=== PATIENT | female | born 1975 | race Hispanic/Latino ===

== ENCOUNTER 2016-12-27 12:18 | Inpatient (IN) | payer MEDICAID ==
[2016-12-27 15:07] LABS: Basophils % (Auto) 0.5 % (0.0-1.8); Hemoglobin 14.9 gm/dl (10.1-14.3); Mean Corpuscular HGB Conc 32 % (30-34); Mean Corpuscular Hemoglobin 28 pg (28-32); Mean Corpuscular Volume 85 fl (79-97); Platelet Count 256 K/mm3 (140-440); Red Blood Count 5.41 M/mm3 (3.65-5.03); Red Cell Distribution Width 17.4 % (13.2-15.2); White Blood Count 10.5 K/mm3 (4.5-11.0)
[2016-12-27 15:18] LABS: INR 1.08 (0.87-1.13)
[2016-12-27 15:19] LABS: Partial Thromboplastin Time 28.5 Sec. (24.2-36.6)
[2016-12-27 15:24] LABS: Anion Gap 19 mmol/L; Blood Urea Nitrogen 14 mg/dL (7-17); Calcium 9.2 mg/dL (8.4-10.2); Carbon Dioxide 26 mmol/L (22-30); Chloride 100.3 mmol/L (98-107); Glucose 145 mg/dL (65-100); Potassium 3.9 mmol/L (3.6-5.0); Sodium 141 mmol/L (137-145)
[2016-12-27] MEDS ORDERED: DUONEB 0.5 MG-3 MG/3 ML SOLN IH ONE (20:19)
[2016-12-27] MEDS ORDERED: ASPIRIN PO ONE (20:19)
[2016-12-27] MEDS ORDERED: MORPHINE IM ONE (20:19)
--- NOTE | 2016-12-27 20:25 | Emergency Department Report ---
HPI - General Chief Complaint: Chest Pain Time Seen by Provider: 12/27/16 20:01 - HPI HPI: This is a 41-year-old female who presents to the emergency department by EMS from home with complaint of midsternal chest pain since yesterday. It is a constant stabbing pain it is associated with some shortness of breath, dry cough. Patient says she had 2 episodes of vomiting yesterday but that has since resolved. She denies any fever, back pain, diaphoresis. She has not taken anything for symptoms prior to presentation. She has a history of hypertension, pad-[id number] diabetes, CVA. Patient admits to noncompliance with some of her medications over the past few weeks. No recent travel or sick contacts at home. Her primary care doctor is a Dr. Dia. 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 ED Past Medical Hx - Past Medical History Hx Hypertension: Yes Hx CVA: Yes Hx Heart Attack/AMI: Yes Hx Congestive Heart Failure: Yes Hx Diabetes: Yes Hx Arthritis: Yes Hx Asthma: No Hx COPD: Yes Hx HIV: No Additional medical history: "Enlarged heart", palpitations, sleep apnea, A. fib - Surgical History Additional Surgical History: cyst from buttock. - Social History Smoking Status: Never Smoker - Medications Home Medications: Home Medications Medication Instructions Recorded Confirmed Last Taken Type Aspirin EC [Aspirin Enteric Coated 81 mg PO QDAY #30 tablet. 08/24/16 Unknown Rx TAB] AtorvaSTATin [Lipitor] 40 mg PO QHS #30 tablet 11/06/16 Unknown Rx Digoxin [Lanoxin] 0.25 mg PO DAILY@1700 #30 tablet 11/06/16 Unknown Rx Furosemide [Lasix TAB] 40 mg PO 0600,1800 #60 tablet 11/06/16 Unknown Rx HYDROcodone/APAP 5-325 [[place] 1 each PO Q4HR PRN #12 tablet 11/06/16 Unknown Rx 5/325] Levofloxacin [Levaquin] 750 mg PO QDAY #5 tablet 11/06/16 Unknown Rx Metoprolol [Lopressor TAB] 100 mg PO Q8H #90 tablet 11/06/16 Unknown Rx Potassium Chloride [K-Dur] 10 meq PO Q24HR #60 tablet 11/06/16 Unknown Rx Rivaroxaban [Xarelto] 20 mg PO QDDIAB #30 tablet 11/06/16 Unknown Rx glipiZIDE [Glucotrol] 5 mg PO QDAY #30 tablet 11/06/16 Unknown Rx metFORMIN [Glucophage] 1,000 mg PO BID #60 tablet 11/06/16 Unknown Rx ED Review of Systems ROS: Stated complaint: CHEST TIGHT Other details as noted in HPI Comment: All other systems reviewed and negative Constitutional: denies: chills, fever Eyes: denies: eye pain, eye discharge, vision change ENT: denies: ear pain, throat pain Respiratory: cough, shortness of breath Cardiovascular: chest pain. denies: edema Gastrointestinal: denies: abdominal pain, diarrhea Genitourinary: denies: urgency, dysuria, discharge Musculoskeletal: denies: back pain, joint swelling, arthralgia Skin: denies: rash, lesions Neurological: denies: headache, weakness, paresthesias Physical Exam - Physical Exam Vital Signs: Vital Signs 12/27/16 12/27/16 12/27/16 14:00 19:53 20:05 Temperature 97.5 F L 98 F Pulse Rate 82 104 H 102 H Respiratory 22 26 H 22 Rate Blood Pressure 172/126 Blood Pressure 160/115 [Left] O2 Sat by Pulse 95 95 95 Oximetry 12/27/16 20:07 Temperature Pulse Rate Respiratory 22 Rate Blood Pressure Blood Pressure [Left] O2 Sat by Pulse 95 Oximetry Physical Exam: GENERAL: The patient is well-developed well-nourished. HEENT: Normocephalic. Atraumatic. Extraocular motions are intact. Patient has moist mucous membranes. Pupils equal reactive to light bilateral. NECK: Supple. Trachea is midline. CHEST/LUNGS: Mild to moderate wheezing throughout the chest. There is a dry cough heard during examination. No tachypnea or accessory muscle use. There is no respiratory distress noted. HEART/CARDIOVASCULAR: Irregularly irregular with controlled rate. ABDOMEN: Abdomen is soft, nontender. Patient has normal bowel sounds. There is no abdominal distention. Obese habitus. SKIN: There is no rash. There is no edema. There is no diaphoresis. NEURO: The patient is awake, alert, and oriented. The patient is cooperative. The patient has no focal neurologic deficits. The patient has normal speech. MUSCULOSKELETAL: There is no tenderness or deformity. There is no limitation range of motion. There is no evidence of acute injury. ED Course Vital Signs 12/27/16 12/27/16 12/27/16 14:00 19:53 20:05 Temperature 97.5 F L 98 F Pulse Rate 82 104 H 102 H Respiratory 22 26 H 22 Rate Blood Pressure 172/126 Blood Pressure 160/115 [Left] O2 Sat by Pulse 95 95 95 Oximetry 12/27/16 20:07 Temperature Pulse Rate Respiratory 22 Rate Blood Pressure Blood Pressure [Left] O2 Sat by Pulse 95 Oximetry ED Medical Decision Making - Lab Data Result diagrams: 12/27/16 14:51 12/27/16 14:51 - EKG Data -: EKG Interpreted by Me - EKG Data When compared to previous EKG there are: no significant change Interpretation: unchanged when compared t (11/05/16), other (atrial fibrillation , Q waves in anterior leads, no ST elevation VA) - Radiology Data Radiology results: image reviewed interpreted by me: Chest x-ray shows cardiomegaly and pulmonary vascular congestion with mild basilar pleural effusions consistent with some mild CHF. - Medical Decision Making 41-year-old female presents to the emergency department with a few days of chest pain and shortness of breath. Looking back at patient's consult and records, she has a history of occasional noncompliance and once again has been non-compliant with her medications including blood pressure, blood thinners and diaphoretic. Patient's chest x-ray shows mild CHF. She had a negative d-dimer , despite her lack of Xarelto, and therefore is low suspicion for a pulmonary embolism. First to troponins have been negative. BNP level is greater than 4000 however. And with the x-ray findings, she appears to be an a exacerbation of her CHF. She will be given Lasix and will be admitted to hospital for further evaluation and has been accepted admission by the hospitalist, Dr. Messina. - Differential Diagnosis VA, PE, CHF, pneumonia Critical Care Time: No Critical care attestation.: If time is entered above; I have spent that time in minutes in the direct care of this critically ill patient, excluding procedure time. ED Disposition Clinical Impression: Acute on chronic systolic (congestive) heart failure, Noncompliance with medication regimen, Shortness of breath, Acute chest pain Hypertension Qualifiers: Hypertension type: essential hypertension Qualified Code(s): I10 - Essential ( primary) hypertension Disposition: OP ADMITTED IP TO THIS HOSP Is pt being admited?: Yes Condition: Stable Instructions: Chest Pain (ED), Hypertension (ED) Referrals: DR YOLANDE [Other] - 3-5 Days Time of Disposition: 21:29
[2016-12-27] MEDS ORDERED: LASIX IV ONE (21:17)
--- NOTE | 2016-12-27 22:26 | XRay Report ---
FINAL REPORT EXAM: XR CHEST 1V AP HISTORY: CP TECHNIQUE: Single, portable chest x-ray. PRIORS: 14 May 2016. FINDINGS: Moderate cardiomegaly stable. Lungs are normally expanded, with some interstitial prominence centrally, but no significant vascular congestion. No focal consolidation or apparent pneumothorax. IMPRESSION: 1. Cardiomegaly. 2. No acute consolidation.
[2016-12-27] MEDS ORDERED: DULCOLAX PR PRN (22:30)
[2016-12-27] MEDS ORDERED: TYLENOL PO PRN (22:30)
[2016-12-27] MEDS ORDERED: PROVENTIL IH PRN (22:30)
[2016-12-27] MEDS ORDERED: D50W (25GM) IV PRN (22:30)
[2016-12-27] MEDS ORDERED: MILK OF MAGNESIA PO PRN (22:30)
[2016-12-27] MEDS ORDERED: ZOFRAN IV PRN (22:30)
--- NOTE | 2016-12-27 22:39 | History and Physical Report ---
History of Present Illness Date of examination: 12/27/16 History of present illness: 41-year-old woman with a history of hypertension, diabetes, CHF, A. fib, COPD, sleep apnea, coronary artery disease and history of CVA comes emergency room with complaints of chest pain. Pain is in the epigastric area which started yesterday, described as a stabbing pain, constant, intensity 6/10, no radiation , she cannot identify exacerbating or relieving factors. She admits to shortness breath, no nausea vomiting, diaphoresis palpitation, lower extremity edema or orthopnea. States she had a stress test 5 months ago Patient denies cough, abdominal pain, hematochezia, dysuria, frequency, focal weakness, dysarthria, fever chills, polydipsia polyuria, hot or cold intolerance , easy bruisability, or rash or bleeding from mucosal membrane, rhinorrhea, epistaxis, earache, tinnitus, blurry vision, eye discharge, anxiety, depression. Other review of systems negative PAST SURGICAL HISTORY: None SOCIAL HISTORY: As alcohol, tobacco, drugs FAMILY HISTORY: Diabetes, coronary artery disease Medications and Allergies Allergies Allergy/AdvReac Type Severity Reaction Status Date / Time No Known Allergies Allergy Verified 12/27/16 14:12 Home Medications Medication Instructions Recorded Confirmed Last Taken Type Aspirin EC [Aspirin Enteric Coated 81 mg PO QDAY #30 tablet. 08/24/1612/27/16 Rx TAB] AtorvaSTATin [Lipitor] 40 mg PO QHS #30 tablet 11/06/16 12/27/16 12/26/16 Rx Digoxin [Lanoxin] 0.25 mg PO DAILY@1700 #30 tablet 11/06/16 12/27/16 12/27/16 Rx Furosemide [Lasix TAB] 40 mg PO 0600,1800 #60 tablet 11/06/16 12/27/16 12/27/16 Rx Metoprolol [Lopressor TAB] 100 mg PO Q8H #90 tablet 11/06/16 12/27/16 12/27/16 Rx Rivaroxaban [Xarelto] 20 mg PO QDDIAB #30 tablet 11/06/16 12/27/16 12/27/16 Rx glipiZIDE [Glucotrol] 5 mg PO QDAY #30 tablet 11/06/16 12/27/16 12/27/16 Rx metFORMIN [Glucophage] 1,000 mg PO BID #60 tablet 11/06/16 12/27/16 12/27/16 Rx Potassium Chloride [Klor-Con 10] 10 meq PO DAILY 12/27/16 12/27/16 12/27/16 History Exam - Physical Exam Narrative exam: Gen. appearance: Patient lying in bed, no apparent distress HEENT: Normocephalic, atraumatic, pupils equally round and reactive to light, extraocular movement intact, and no sclericterus,. No JVD or thyromegaly or nodule,neck supple, no carotid bruit ,mucous membranes moist, no exudate or erythema Heart: S1, S2, regular rate and rhythm Lungs: Clear to auscultation bilaterally, breathing comfortable Abdomen: Positive bowel sounds, nontender, nondistended, no organomegaly Extremity: No edema, cyanosis, clubbing Skin: No rash, nodules, warm, dry Neuro: Oriented 3, cranial nerves II-12 intact, speech is fluent, motor and sensory intact - Constitutional Vitals: Temp Pulse Resp BP Pulse Ox 98 F 75 19 160/115 95 12/27/16 20:05 12/27/16 21:11 12/27/16 21:11 12/27/16 20:05 12/27/16 20:07 Results - Labs CBC & Chem 7: 12/27/16 14:51 12/27/16 14:51 Labs: Abnormal lab results 12/27/16 12/27/16 12/27/16 Range/Units 14:51 14:51 20:27 RBC 5.41 H (3.65-5.03) M/mm3 Hgb 14.9 H (10.1-14.3) gm/dl Hct 46.0 H (30.3-42.9) % RDW 17.4 H (13.2-15.2) % [place] % (Auto) 10.6 H (0.0-7.3) % [place] # 1.1 H (0.0-0.8) K/mm3 Seg Neutrophils % 72.1 H (40.0-70.0) % Glucose 145 H (65-100) mg/dL NT-Pro-B Natriuret Pep 4250 H (0-450) pg/mL - Imaging and Cardiology EKG: image reviewed Chest x-ray: image reviewed Assessment and Plan Unstable angina Coronary artery disease A. fib Hypertension Diabetes of 2 COPD Sleep apnea Admit to medicine Check cardiac enzymes, consult cardiology Check fingersticks initiate insulin sliding scale, continue appropriate outpatient medications DVT prophylaxis with xarelto
--- NOTE | 2016-12-27 23:10 | Admit Criteria Form ---
Admission Criteria Documentation: HEART FAILURE: COMMON COMPLICATIONS Clinical Indications for Inpatient Care (Place 'X' for any and all applicable criteria): Ongoing inpatient care may be indicated for heart failure with ANY ONE of the following (1)(2)(3)(4)(5): [ ]I. Ongoing need for care for primary condition requiring frequent therapy adjustments because of changes in cardiac function (eg, drug dosage changes for drugs that are renally metabolized) [ ]II. New-onset heart failure [ ]III. Heart failure with decreased urine output not responsive to attempts to optimize volume status [ ]IV. Acute cardiac ischemia causing or associated with failure [ X]V. Complications of heart failure, including ANY ONE of the following: [ ]a) Pericardial effusion [ ]b) Symptomatic pleural effusion [ ]c) O2 saturation <90% or PO2 < 60 mm Hg (8.0 kPa) on room air or require baseline supplemental O2 [ ]d) Tachypnea [ X]e) Dyspnea [ ]f) Syncope [ ]g) Change in mental status [ ]h) Acute renal insufficiency that is severe (reduction of more than 50% in estimated glomerular filtration rate from baseline) or progressive reduction of more than 25% in estimated glomerular filtration rate from baseline, with creatinine continuing to rise) [ ]i) Hemodynamic instability [ ]j) Anasarca [ ]k) Clinically significant metabolic abnormalities due to heart failure (eg, new-onset metabolic acidosis) Extended stay beyond goal length of stay for primary condition may be needed until ALL of the following are present(1)(3): [ ]a) Stable and effective diuretic regimen established (or patient on stable dialysis regimen if in chronic renal failure) [ ]b) Breathing comfortably at rest [ ]c) Saturation of arterial oxygen greater than 90% or at acceptable baseline [ ]d) Pulmonary edema absent or improved [ ]e) Hemodynamic stability [ ]f) Volume status acceptable on oral medication [ ]g) Peripheral or sacral edema absent or improved [ ]h) Renal function stable and manageable at a lower level of care [ ]i) Complications (eg, pleural effusion) resolved or manageable at a lower level of care [ ]j) Patient or caregiver has received written discharge instructions or educational material addressing activity level, diet, discharge medications, follow-up appointment, weight monitoring, and what to do if symptoms worsen The original [employer], [facility] content created by [employer] has been revised. The portions of the content which have been revised are identified through the use of italic text or in bold, and [facility] has neither reviewed nor approved the modified material.All other unmodified content is copyright [facility]. Please see references footnoted in the original [facility] edition 2016 Admission Criteria Met: Yes
[2016-12-28] MEDS: MORPHINE IV PRN ×4 (02:05→21:58)
[2016-12-28 04:45] LABS: Basophils % (Auto) 0.6 % (0.0-1.8); Eosinophils % (Auto) 2.4 % (0.0-4.3); Hematocrit 42.6 % (30.3-42.9); Hemoglobin 13.7 gm/dl (10.1-14.3); Mean Corpuscular HGB Conc 32 % (30-34); Mean Corpuscular Hemoglobin 27 pg (28-32); Mean Corpuscular Volume 85 fl (79-97); Platelet Count 235 K/mm3 (140-440); Red Blood Count 5.01 M/mm3 (3.65-5.03); Red Cell Distribution Width 16.9 % (13.2-15.2); White Blood Count 7.8 K/mm3 (4.5-11.0)
[2016-12-28 04:52] LABS: Anion Gap 18 mmol/L; BUN/Creatinine Ratio 21.42; Blood Urea Nitrogen 15 mg/dL (7-17); Calcium 8.2 mg/dL (8.4-10.2); Carbon Dioxide 26 mmol/L (22-30); Chloride 97.8 mmol/L (98-107); Glucose 158 mg/dL (65-100); Potassium 3.4 mmol/L (3.6-5.0); Sodium 138 mmol/L (137-145)
[2016-12-28 04:54] LABS: Creatine Kinase MB 1.5 ng/mL (0.0-4.0)
[2016-12-28 04:55] LABS: Creatine Kinase 36 units/L (30-135)
[2016-12-28 08:18] LABS: Creatine Kinase MB 1.7 ng/mL (0.0-4.0)
[2016-12-28 08:21] LABS: Creatine Kinase 35 units/L (30-135)
[2016-12-28] MEDS: NOVOLOG SUB-Q SCH ×4 (09:07→22:12)
[2016-12-28] MEDS: ASPIRIN PO SCH (09:07)
--- NOTE | 2016-12-28 09:35 | Consultation ---
History of Present Illness Consult date: 12/28/16 Consult reason: chest pain History of present illness: Patient is presenting with severe stabbing chest pain. She is profoundly non- compliant with meds and outpatient follow-up. ECG is showing subtle St_T wave changes in the lateral leads. Troponin are negative. Past History Past Medical History: atrial fib, COPD, diabetes, heart failure, hypertension, hyperlipidemia Medications and Allergies Allergies Allergy/AdvReac Type Severity Reaction Status Date / Time No Known Allergies Allergy Verified 12/27/16 14:12 Home Medications Medication Instructions Recorded Confirmed Last Taken Type Aspirin EC [Aspirin Enteric Coated 81 mg PO QDAY #30 tablet. 08/24/1612/27/16 Rx TAB] AtorvaSTATin [Lipitor] 40 mg PO QHS #30 tablet 11/06/16 12/27/16 12/26/16 Rx Digoxin [Lanoxin] 0.25 mg PO DAILY@1700 #30 tablet 11/06/16 12/27/16 12/27/16 Rx Furosemide [Lasix TAB] 40 mg PO 0600,1800 #60 tablet 11/06/16 12/27/16 12/27/16 Rx Metoprolol [Lopressor TAB] 100 mg PO Q8H #90 tablet 11/06/16 12/27/16 12/27/16 Rx Rivaroxaban [Xarelto] 20 mg PO QDDIAB #30 tablet 11/06/16 12/27/16 12/27/16 Rx glipiZIDE [Glucotrol] 5 mg PO QDAY #30 tablet 11/06/16 12/27/16 12/27/16 Rx metFORMIN [Glucophage] 1,000 mg PO BID #60 tablet 11/06/16 12/27/16 12/27/16 Rx Potassium Chloride [Klor-Con 10] 10 meq PO DAILY 12/27/16 12/27/16 12/27/16 History Active Meds: Active Medications Acetaminophen (Tylenol) 650 mg PO Q4H PRN PRN Reason: Pain MILD(1-3)/Fever >100.5/AGRAWAL Albuterol (Proventil) 2.5 mg IH Q3HRT PRN PRN Reason: Shortness Of Breath Aspirin (Aspirin) 325 mg PO QDAY NATHALIE Last Admin: 12/28/16 09:07 Dose: 325 mg Bisacodyl (Dulcolax) 10 mg AL QDAY PRN PRN Reason: Constipation unrelieved by MOM Dextrose (D50w (25gm)) 50 ml IV PRN PRN PRN Reason: Hypoglycemia Enoxaparin Sodium (Lovenox) 40 mg SUB-Q QDAY [facility] Last Admin: 12/28/16 09:05 Dose: 40 mg Insulin Aspart (Novolog) 0 units SUB-Q ACHS NATHALIE PRN Reason: Protocol Last Admin: 12/28/16 09:07 Dose: 3 units Magnesium Hydroxide (Milk Of Magnesia) 30 ml PO Q4H PRN PRN Reason: Constipation Morphine Sulfate (Morphine) 2 mg IV Q4H PRN PRN Reason: Pain, Moderate (4-6) Last Admin: 12/28/16 09:06 Dose: 2 mg Ondansetron HCl (Zofran) 4 mg IV Q8H PRN PRN Reason: N/V unrelieved by Reglan Last Admin: 12/28/16 09:06 Dose: 4 mg Review of Systems All systems: negative Physical Examination Vital Signs Temp Pulse Resp BP Pulse Ox 97.5 F L 82 22 172/126 95 12/27/16 14:00 12/27/16 14:00 12/27/16 14:00 12/27/16 14:00 12/27/16 14:00 General appearance: no acute distress HEENT: Positive: PERRL Neck: Positive: neck supple Cardiac: Positive: Reg Rate and Rhythm Lungs: Positive: Decreased Breath Sounds Neuro: Positive: Grossly Intact Abdomen: Positive: Soft Extremities: Absent: edema Results 12/28/16 03:53 12/28/16 03:53 Cardiac Enzymes 12/28/16 12/28/16 Range/Units 03:53 07:28 CK-MB (CK-2) 1.5 1.7 (0.0-4.0) ng/mL CBC 12/28/16 Range/Units 03:53 WBC 7.8 (4.5-11.0) K/mm3 RBC 5.01 (3.65-5.03) M/mm3 Hgb 13.7 (10.1-14.3) gm/dl Hct 42.6 (30.3-42.9) % Plt Count 235 (140-440) K/mm3 Lymph # 1.5 (1.2-5.4) K/mm3 [place] # 0.9 H (0.0-0.8) K/mm3 Eos # 0.2 (0.0-0.4) K/mm3 Baso # 0.0 (0.0-0.1) K/mm3 Comprehensive Metabolic Panel 12/28/16 Range/Units 03:53 Sodium 138 (137-145) mmol/L Potassium 3.4 L (3.6-5.0) mmol/L Chloride 97.8 L (98-107) mmol/L Carbon Dioxide 26 (22-30) mmol/L BUN 15 (7-17) mg/dL Creatinine 0.7 (0.7-1.2) mg/dL Glucose 158 H (65-100) mg/dL Calcium 8.2 L (8.4-10.2) mg/dL EKG interpretations - Telemetry EKG Rhythm: Atrial Fibrillation Assessment and Plan Chest Pain Subtle ST-T changes in the lateral leads - cannot exclude ischemia Troponin negative x 4 Chronic Atrial fibrillation non-compliant with anticoagulation COPD ANTONETTE Obese Cardiomyopathy, non-ischemic TDS, EF severely reduced on echo 04/2016 No ischemia on stress thallium 07/2016 Diabetes Hypertension Anxiety Non compliance Recommendations: asa, lovenox bid, metoprolol, lipitor C on friday
[2016-12-28] MEDS ORDERED: LOVENOX SUB-Q SCH (10:00)
[2016-12-28] MEDS: LOVENOX SUB-Q SCH ×2 (15:25→21:58)
[2016-12-28] MEDS: TOPROL XL PO SCH (15:26)
--- NOTE | 2016-12-29 07:50 | Progress Note ---
Assessment and Plan - Patient Problems (1) Acute chest pain Current Visit: Yes Status: Acute (2) Acute on chronic systolic (congestive) heart failure Current Visit: Yes Status: Acute Plan to address problem: Cardiology consulted: CHF protocol, telemetry, supportive care, fluid restriction, low sodium diet, (3) Noncompliance with medication regimen Current Visit: Yes Status: Acute Plan to address problem: Pt counseled (4) Hypertension Current Visit: Yes Status: Chronic Qualifiers: Hypertension type: essential hypertension Qualified Code(s): I10 - Essential (primary) hypertension Plan to address problem: Monitor bp q shift, (5) Sleep apnea Current Visit: No Status: Acute Qualifiers: Sleep apnea type: S Plan to address problem: NIPPV, supplemental oxygen, incentive spirometry, ambulation prn (6) Morbid obesity due to excess calories Current Visit: No Status: Chronic Plan to address problem: Pt counseled (7) Type 2 diabetes mellitus Current Visit: No Status: Chronic Qualifiers: Diabetes mellitus complication status: without complication Diabetes mellitus complication detail: D Diabetic retinopathy severity: D Proliferative retinopathy type: P Diabetes mellitus macular edema: D 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 Pt denies pain, palpitations, NVD, No reported nursing events. Pt informed of cardiac testing on friday. Hospitalist Physical - Constitutional Vitals: Temp Pulse Resp BP Pulse Ox 98.6 F 68 22 122/90 100 12/29/16 05:31 12/29/16 05:55 12/29/16 05:31 12/29/16 05:31 12/29/16 05:31 General appearance: Present: no acute distress, obese - EENT Eyes: Present: PERRL ENT: hearing intact - Neck Neck: Present: supple - Respiratory Respiratory: bilateral: diminished - Cardiovascular Rhythm: regular Heart Sounds: Present: S1 & S2 - Extremities Extremities: no ischemia Peripheral Pulses: within normal limits - Abdominal General gastrointestinal: soft, non-tender, non-distended - Integumentary Integumentary: Present: clear, dry - Psychiatric Psychiatric: appropriate mood/affect, cooperative - Neurologic Neurologic: CNII-XII intact Results - Labs CBC & Chem 7: 12/28/16 03:53 12/28/16 03:53 Labs: Laboratory Last Values WBC 7.8 K/mm3 (4.5-11.0) 12/28/16 03:53 RBC 5.01 M/mm3 (3.65-5.03) 12/28/16 03:53 Hgb 13.7 gm/dl (10.1-14.3) 12/28/16 03:53 Hct 42.6 % (30.3-42.9) 12/28/16 03:53 MCV 85 fl (79-97) 12/28/16 03:53 MCH 27 pg (28-32) L 12/28/16 03:53 MCHC 32 % (30-34) 12/28/16 03:53 RDW 16.9 % (13.2-15.2) H 12/28/16 03:53 Plt Count 235 K/mm3 (140-440) 12/28/16 03:53 Lymph % (Auto) 19.7 % (13.4-35.0) 12/28/16 03:53 [place] % (Auto) 11.5 % (0.0-7.3) H 12/28/16 03:53 Eos % (Auto) 2.4 % (0.0-4.3) 12/28/16 03:53 Baso % (Auto) 0.6 % (0.0-1.8) 12/28/16 03:53 Lymph # 1.5 K/mm3 (1.2-5.4) 12/28/16 03:53 [place] # 0.9 K/mm3 (0.0-0.8) H 12/28/16 03:53 Eos # 0.2 K/mm3 (0.0-0.4) 12/28/16 03:53 Baso # 0.0 K/mm3 (0.0-0.1) 12/28/16 03:53 Seg Neutrophils % 65.8 % (40.0-70.0) 12/28/16 03:53 Seg Neutrophils # 5.2 K/mm3 (1.8-7.7) 12/28/16 03:53 PT 13.9 Sec. (12.2-14.9) 12/27/16 14:51 INR 1.08 (0.87-1.13) 12/27/16 14:51 APTT 28.5 Sec. (24.2-36.6) 12/27/16 14:51 D-Dimer < 135.00 ng/mlDDU (0-234) 12/27/16 20:27 Sodium 138 mmol/L (137-145) 12/28/16 03:53 Potassium 3.4 mmol/L (3.6-5.0) L 12/28/16 03:53 Chloride 97.8 mmol/L (98-107) L 12/28/16 03:53 Carbon Dioxide 26 mmol/L (22-30) 12/28/16 03:53 Anion Gap 18 mmol/L 12/28/16 03:53 BUN 15 mg/dL (7-17) 12/28/16 03:53 Creatinine 0.7 mg/dL (0.7-1.2) 12/28/16 03:53 Estimated GFR > 60 ml/min 12/28/16 03:53 BUN/Creatinine Ratio 21.42 % 12/28/16 03:53 Glucose 158 mg/dL (65-100) H 12/28/16 03:53 POC Glucose 191 (70-105) H 12/28/16 21:37 Calcium 8.2 mg/dL (8.4-10.2) L 12/28/16 03:53 Total Creatine Kinase 35 units/L (30-135) 12/28/16 07:28 CK-MB (CK-2) 1.7 ng/mL (0.0-4.0) 12/28/16 07:28 CK-MB (CK-2) Rel Index 4.8 (0-4) H 12/28/16 07:28 Troponin T < 0.010 ng/mL (0.00-0.029) 12/28/16 07:28 NT-Pro-B Natriuret Pep 4250 pg/mL (0-450) H 12/27/16 20:27
--- NOTE | 2016-12-29 08:52 | Progress Note ---
Assessment and Plan Chest Pain Recurrent admissions for chest pain Subtle ST-T changes in the lateral leads - cannot exclude ischemia Troponin negative x 4 Chronic Atrial fibrillation non-compliant with anticoagulation COPD ANTONETTE Obese Cardiomyopathy, non-ischemic TDS, EF severely reduced on echo 04/2016 No ischemia on stress thallium 07/2016 Diabetes Hypertension Anxiety Non compliance Recommendations: asa, lovenox bid, metoprolol, lipitor [facility] on friday Subjective Date of service: 12/29/16 Principal diagnosis: Chest Pain Interval history: No interval changes or cardiac events Objective Vital Signs Temp Pulse Pulse Resp BP BP Pulse Ox 12/29/16 05:55 68 12/29/16 05:31 98.6 F 74 22 122/90 100 12/29/16 00:57 98.5 F 96 H 22 125/82 97 12/29/16 00:27 68 20 96 12/28/16 21:58 20 12/28/16 20:39 98.5 F 92 H 22 135/81 95 12/28/16 20:15 97 12/28/16 17:35 97.9 F 66 20 163/96 98 12/28/16 15:26 104 H 112/77 12/28/16 09:43 95 - Physical Examination HEENT: Positive: PERRL Neck: Positive: neck supple Cardiac: Positive: irregularly irregular Lungs: Positive: Decreased Breath Sounds Neuro: Positive: Grossly Intact Abdomen: Positive: Soft Extremities: Absent: edema - Imaging and Cardiology EKG: image reviewed
[2016-12-29] MEDS ORDERED: NACL 0.9% 500 ML 500 ML IV SCH (09:00)
[2016-12-29] MEDS: NOVOLOG SUB-Q SCH ×2 (10:27→22:52)
[2016-12-29] MEDS: ASPIRIN PO SCH (10:28)
[2016-12-29] MEDS: TOPROL XL PO SCH (10:28)
[2016-12-29] MEDS: LOVENOX SUB-Q SCH ×2 (10:30→22:52)
[2016-12-29] MEDS: MORPHINE IV PRN ×3 (10:31→21:05)
--- NOTE | 2016-12-29 15:33 | Progress Note ---
Assessment and Plan - Patient Problems (1) Acute chest pain Current Visit: Yes Status: Acute Plan to address problem: telemetry, Cardiology consulted, Cardiac cath on Friday (2) Acute on chronic systolic (congestive) heart failure Current Visit: Yes Status: Acute Plan to address problem: Cardiology consulted: CHF protocol, telemetry, supportive care, fluid restriction, low sodium diet, (3) Noncompliance with medication regimen Current Visit: Yes Status: Acute Plan to address problem: Pt counseled (4) Hypertension Current Visit: Yes Status: Chronic Qualifiers: Hypertension type: essential hypertension Qualified Code(s): I10 - Essential (primary) hypertension Plan to address problem: Monitor bp q shift, (5) Sleep apnea Current Visit: No Status: Acute Qualifiers: Sleep apnea type: S Plan to address problem: NIPPV, supplemental oxygen, incentive spirometry, ambulation prn (6) Morbid obesity due to excess calories Current Visit: No Status: Chronic Plan to address problem: Pt counseled (7) Type 2 diabetes mellitus Current Visit: No Status: Chronic Qualifiers: Diabetes mellitus complication status: without complication Diabetes mellitus complication detail: D Diabetic retinopathy severity: D Proliferative retinopathy type: P Diabetes mellitus macular edema: D Diabetes mellitus fdc insulin use: without adjunct faculty for medical terminology use Laterality: L Chronic kidney disease stage: C Qualified Code(s): E11.9 - Type 2 diabetes mellitus without complications Plan to address problem: ADA diet, insulin, Accu check (8) DVT prophylaxis Current Visit: Yes Status: Acute History Interval history: Pt lying in bed, NIPPV in place. Pt denies pain, palpitations, NVD, No reported nursing events. Pending Cardiac Cath on friday. Pt counseled regarding leaving the floor, and taking off her punchboard stuffer. Hospitalist Physical - Constitutional Vitals: Temp Pulse Resp BP Pulse Ox 98.0 F 109 H 20 170/102 94 12/29/16 08:25 12/29/16 10:28 12/29/16 10:31 12/29/16 10:28 12/29/16 10:00 General appearance: Present: no acute distress, obese - EENT Eyes: Present: PERRL, EOM intact ENT: hearing intact - Neck Neck: Present: supple - Respiratory Respiratory: bilateral: diminished - Cardiovascular Rhythm: regular Heart Sounds: Present: S1 & S2 - Extremities Extremities: no ischemia Peripheral Pulses: within normal limits - Abdominal General gastrointestinal: soft, non-tender, non-distended - Integumentary Integumentary: Present: clear, dry - Psychiatric Psychiatric: appropriate mood/affect, cooperative - Neurologic Neurologic: CNII-XII intact Results - Labs CBC & Chem 7: 12/28/16 03:53 12/28/16 03:53 Labs: Laboratory Last Values WBC 7.8 K/mm3 (4.5-11.0) 12/28/16 03:53 RBC 5.01 M/mm3 (3.65-5.03) 12/28/16 03:53 Hgb 13.7 gm/dl (10.1-14.3) 12/28/16 03:53 Hct 42.6 % (30.3-42.9) 12/28/16 03:53 MCV 85 fl (79-97) 12/28/16 03:53 MCH 27 pg (28-32) L 12/28/16 03:53 MCHC 32 % (30-34) 12/28/16 03:53 RDW 16.9 % (13.2-15.2) H 12/28/16 03:53 Plt Count 235 K/mm3 (140-440) 12/28/16 03:53 Lymph % (Auto) 19.7 % (13.4-35.0) 12/28/16 03:53 [place] % (Auto) 11.5 % (0.0-7.3) H 12/28/16 03:53 Eos % (Auto) 2.4 % (0.0-4.3) 12/28/16 03:53 Baso % (Auto) 0.6 % (0.0-1.8) 12/28/16 03:53 Lymph # 1.5 K/mm3 (1.2-5.4) 12/28/16 03:53 [place] # 0.9 K/mm3 (0.0-0.8) H 12/28/16 03:53 Eos # 0.2 K/mm3 (0.0-0.4) 12/28/16 03:53 Baso # 0.0 K/mm3 (0.0-0.1) 12/28/16 03:53 Seg Neutrophils % 65.8 % (40.0-70.0) 12/28/16 03:53 Seg Neutrophils # 5.2 K/mm3 (1.8-7.7) 12/28/16 03:53 PT 13.9 Sec. (12.2-14.9) 12/27/16 14:51 INR 1.08 (0.87-1.13) 12/27/16 14:51 APTT 28.5 Sec. (24.2-36.6) 12/27/16 14:51 D-Dimer < 135.00 ng/mlDDU (0-234) 12/27/16 20:27 Sodium 138 mmol/L (137-145) 12/28/16 03:53 Potassium 3.4 mmol/L (3.6-5.0) L 12/28/16 03:53 Chloride 97.8 mmol/L (98-107) L 12/28/16 03:53 Carbon Dioxide 26 mmol/L (22-30) 12/28/16 03:53 Anion Gap 18 mmol/L 12/28/16 03:53 BUN 15 mg/dL (7-17) 12/28/16 03:53 Creatinine 0.7 mg/dL (0.7-1.2) 12/28/16 03:53 Estimated GFR > 60 ml/min 12/28/16 03:53 BUN/Creatinine Ratio 21.42 % 12/28/16 03:53 Glucose 158 mg/dL (65-100) H 12/28/16 03:53 POC Glucose 183 (70-105) H 12/29/16 12:16 Calcium 8.2 mg/dL (8.4-10.2) L 12/28/16 03:53 Total Creatine Kinase 35 units/L (30-135) 12/28/16 07:28 CK-MB (CK-2) 1.7 ng/mL (0.0-4.0) 12/28/16 07:28 CK-MB (CK-2) Rel Index 4.8 (0-4) H 12/28/16 07:28 Troponin T < 0.010 ng/mL (0.00-0.029) 12/28/16 07:28 NT-Pro-B Natriuret Pep 4250 pg/mL (0-450) H 12/27/16 20:27
[2016-12-30 05:33] LABS: Hemoglobin 13.1 gm/dl (10.1-14.3)
[2016-12-30 05:42] LABS: Basophils % (Auto) 0.4 % (0.0-1.8); Eosinophils % (Auto) 2.8 % (0.0-4.3); Hematocrit 40.5 % (30.3-42.9); INR 1.08 (0.87-1.13); Mean Corpuscular HGB Conc 32 % (30-34); Mean Corpuscular Hemoglobin 28 pg (28-32); Mean Corpuscular Volume 86 fl (79-97); Platelet Count 211 K/mm3 (140-440); Red Blood Count 4.73 M/mm3 (3.65-5.03); Red Cell Distribution Width 16.9 % (13.2-15.2); White Blood Count 7.2 K/mm3 (4.5-11.0)
[2016-12-30 05:54] LABS: Anion Gap 17 mmol/L; Blood Urea Nitrogen 12 mg/dL (7-17); Calcium 8.3 mg/dL (8.4-10.2); Carbon Dioxide 28 mmol/L (22-30); Chloride 98.8 mmol/L (98-107); Glucose 155 mg/dL (65-100); Potassium 3.9 mmol/L (3.6-5.0); Sodium 140 mmol/L (137-145)
[2016-12-30] MEDS ORDERED: NACL 0.9% 500 ML 500 ML IV SCH (06:00)
[2016-12-30] MEDS: NOVOLOG SUB-Q SCH ×4 (08:02→21:47)
[2016-12-30] MEDS ORDERED: NITROGLYCERIN SYRINGE 3 ML ONE (08:32)
[2016-12-30] MEDS ORDERED: HEPARIN/NS 5000 UNIT/500ML(CATH LAB) 1,000 ML IR ONE (08:32)
[2016-12-30] MEDS ORDERED: ASPIRIN ONE (08:50)
[2016-12-30] MEDS: XYLOCAINE 2% INFILTRATI ONE ×2 (09:13→09:30)
[2016-12-30] MEDS: SUBLIMAZE ONE ×2 (09:13→09:25)
[2016-12-30] MEDS: VERSED ONE ×2 (09:13→09:25)
[2016-12-30] MEDS: CALAN ONE ×2 (09:13→09:30)
[2016-12-30] MEDS: HEPARIN 10,000 UNITS/10 ML ONE ×2 (09:14→09:30)
[2016-12-30] MEDS ORDERED: LASIX ONE (09:49)
--- NOTE | 2016-12-30 10:08 | Progress Note ---
Assessment and Plan - Patient Problems (1) Shortness of breath Current Visit: Yes Status: Acute Plan to address problem: Cardiac cath done-R radial approach, no complications. Findings: 1. Non-obstructive disease of the mid LAD and prox RCA. 2. Nonischemic CM, EF 35%. Recommend medical therapy for uncontrolled HTN, CHF and NICM. Subjective Date of service: 12/30/16 Principal diagnosis: Chest Pain Interval history: Cardiac cath done-R radial approach, no complications. Findings: 1. Non-obstructive disease of the mid LAD and prox RCA. 2. Nonischemic CM, EF 35%. Recommend medical therapy for uncontrolled HTN, CHF and NICM. Objective Vital Signs Temp Pulse Pulse Pulse Resp Resp BP 12/30/16 07:23 97.9 F 73 20 12/30/16 05:58 97.6 F 86 20 12/30/16 01:43 89 19 12/30/16 01:00 97.8 F 95 H 19 12/29/16 22:00 95 H 18 18 12/29/16 21:35 18 12/29/16 21:05 18 12/29/16 20:00 97.6 F 66 19 12/29/16 19:19 89 12/29/16 17:15 98.1 F 72 24 12/29/16 10:31 20 12/29/16 10:28 109 H 170/102 BP BP Pulse Ox 12/30/16 07:23 177/106 96 12/30/16 05:58 156/96 99 12/30/16 01:43 98 12/30/16 01:00 159/99 98 12/29/16 22:00 12/29/16 21:35 12/29/16 21:05 12/29/16 20:00 193/122 96 12/29/16 19:19 12/29/16 17:15 201/113 12/29/16 10:31 12/29/16 10:28 - Physical Examination General: No Apparent Distress HEENT: Positive: PERRL Neck: Positive: neck supple Cardiac: Positive: Reg Rate and Rhythm Lungs: Positive: Decreased Breath Sounds Neuro: Positive: Grossly Intact Abdomen: Positive: Soft Skin: Positive: Clear Extremities: Absent: edema - Labs and Meds Coagulation 12/30/16 Range/Units 05:04 PT 13.9 (12.2-14.9) Sec. INR 1.08 (0.87-1.13) CBC 12/30/16 Range/Units 05:04 WBC 7.2 (4.5-11.0) K/mm3 RBC 4.73 (3.65-5.03) M/mm3 Hgb 13.1 (10.1-14.3) gm/dl Hct 40.5 (30.3-42.9) % Plt Count 211 (140-440) K/mm3 Lymph # 2.0 (1.2-5.4) K/mm3 [place] # 0.8 (0.0-0.8) K/mm3 Eos # 0.2 (0.0-0.4) K/mm3 Baso # 0.0 (0.0-0.1) K/mm3 Comprehensive Metabolic Panel 12/30/16 Range/Units 05:04 Sodium 140 (137-145) mmol/L Potassium 3.9 (3.6-5.0) mmol/L Chloride 98.8 (98-107) mmol/L Carbon Dioxide 28 (22-30) mmol/L BUN 12 (7-17) mg/dL Creatinine 0.6 L (0.7-1.2) mg/dL Glucose 155 H (65-100) mg/dL Calcium 8.3 L (8.4-10.2) mg/dL - Imaging and Cardiology EKG: image reviewed
[2016-12-30] MEDS: LOVENOX SUB-Q SCH ×2 (10:10→21:45)
[2016-12-30] MEDS: ASPIRIN PO SCH (10:10)
[2016-12-30] MEDS: TOPROL XL PO SCH (10:38)
--- NOTE | 2016-12-30 10:42 | Cardiac Catherization Report ---
CARDIAC CATHETERIZATION REASON FOR PROCEDURE: Chest pain and cardiomyopathy. DESCRIPTION OF PROCEDURE: The patient was prepped and draped in a sterile fashion after informed consent. The right radial artery was entered using the Seldinger technique followed by placement of a 5-[place] hydrophilic sheath. Routine radial cocktail was administered via the sheath. A #3.5 left Martita catheter was used for left coronary angiography. A #4 right Martita was used for right coronary angiography. The pigtail catheter was used for left ventricular angiography. The catheters were removed, sheath removed, and hemostasis achieved using manual compression. The patient was returned to the postprocedure unit in stable condition. There were no complications. FINDINGS: HEMODYNAMICS: Left ventricle end-diastolic pressure was 35-40, following coronary angiography. Ascending aortic pressure was 194/140. There was no significant pressure gradient on pullback across the aortic valve. CORONARY ANGIOGRAPHY: The left main coronary artery was angiographically normal. There was a 50-60% stenosis of the mid LAD, just after the origin of a medium sized mid diagonal branch. Otherwise, the LAD and diagonal branches were free of significant disease. The circumflex artery and its obtuse marginal branches were free of significant disease. The right coronary artery was dominant and contained a 30-40% stenosis of its proximal segment. The left ventricle is moderately to severely dilated. There is moderately severe left ventricular systolic dysfunction, ejection fraction estimated at 30-35%. CONCLUSION: 1. Mild to moderate, nonobstructive disease of the mid LAD and proximal right coronary artery. 2. Dilated, predominantly nonischemic cardiomyopathy, ejection fraction 30-35%. RECOMMENDATION: 1. Aggressive risk factor modification. 2. Medical therapy for predominantly nonischemic cardiomyopathy. [facility]# [id number] CA/NTS
[2016-12-30] MEDS ORDERED: APRESOLINE IV ONE (12:43)
[2016-12-30] MEDS: MORPHINE IV PRN ×2 (13:07→21:46)
--- NOTE | 2016-12-30 17:24 | Progress Note ---
Assessment and Plan - Patient Problems (1) Acute chest pain Current Visit: Yes Status: Acute Plan to address problem: telemetry, Cardiology consulted, Cardiac cath on Friday (2) Acute on chronic systolic (congestive) heart failure Current Visit: Yes Status: Acute Plan to address problem: Cardiology consulted: CHF protocol, telemetry, supportive care, fluid restriction, low sodium diet, (3) Noncompliance with medication regimen Current Visit: Yes Status: Acute Plan to address problem: Pt counseled (4) Hypertension Current Visit: Yes Status: Chronic Qualifiers: Hypertension type: essential hypertension Qualified Code(s): I10 - Essential (primary) hypertension Plan to address problem: Monitor bp q shift, (5) Sleep apnea Current Visit: No Status: Acute Qualifiers: Sleep apnea type: S Plan to address problem: NIPPV, supplemental oxygen, incentive spirometry, ambulation prn (6) Morbid obesity due to excess calories Current Visit: No Status: Chronic Plan to address problem: Pt counseled (7) Type 2 diabetes mellitus Current Visit: No Status: Chronic Qualifiers: Diabetes mellitus complication status: without complication Diabetes mellitus complication detail: D Diabetic retinopathy severity: D Proliferative retinopathy type: P Diabetes mellitus macular edema: D Diabetes mellitus usp insulin use: without moth exterminator use Laterality: L Chronic kidney disease stage: C Qualified Code(s): E11.9 - Type 2 diabetes mellitus without complications Plan to address problem: ADA diet, insulin, Accu check (8) DVT prophylaxis Current Visit: Yes Status: Acute History Interval history: Pt lying in bed, NIPPV in place. Pt denies pain, palpitations, NVD, No reported nursing events. Hospitalist Physical - Constitutional Vitals: Temp Pulse Resp BP Pulse Ox 98.5 F 94 H 20 208/131 95 12/30/16 15:04 12/30/16 15:04 12/30/16 15:04 12/30/16 15:04 12/30/16 15:04 General appearance: Present: no acute distress, obese - EENT Eyes: Present: PERRL ENT: hearing intact - Neck Neck: Present: supple - Respiratory Respiratory: bilateral: diminished - Cardiovascular Rhythm: regular Heart Sounds: Present: S1 & S2 - Extremities Extremities: no ischemia Peripheral Pulses: within normal limits - Abdominal General gastrointestinal: soft, non-tender, non-distended - Integumentary Integumentary: Present: clear, dry - Psychiatric Psychiatric: appropriate mood/affect, cooperative - Neurologic Neurologic: CNII-XII intact Results - Labs CBC & Chem 7: 12/30/16 05:04 12/30/16 05:04 Labs: Laboratory Last Values WBC 7.2 K/mm3 (4.5-11.0) 12/30/16 05:04 RBC 4.73 M/mm3 (3.65-5.03) 12/30/16 05:04 Hgb 13.1 gm/dl (10.1-14.3) 12/30/16 05:04 Hct 40.5 % (30.3-42.9) 12/30/16 05:04 MCV 86 fl (79-97) 12/30/16 05:04 MCH 28 pg (28-32) 12/30/16 05:04 MCHC 32 % (30-34) 12/30/16 05:04 RDW 16.9 % (13.2-15.2) H 12/30/16 05:04 Plt Count 211 K/mm3 (140-440) 12/30/16 05:04 Lymph % (Auto) 28.4 % (13.4-35.0) 12/30/16 05:04 [place] % (Auto) 11.3 % (0.0-7.3) H 12/30/16 05:04 Eos % (Auto) 2.8 % (0.0-4.3) 12/30/16 05:04 Baso % (Auto) 0.4 % (0.0-1.8) 12/30/16 05:04 Lymph # 2.0 K/mm3 (1.2-5.4) 12/30/16 05:04 [place] # 0.8 K/mm3 (0.0-0.8) 12/30/16 05:04 Eos # 0.2 K/mm3 (0.0-0.4) 12/30/16 05:04 Baso # 0.0 K/mm3 (0.0-0.1) 12/30/16 05:04 Seg Neutrophils % 57.1 % (40.0-70.0) 12/30/16 05:04 Seg Neutrophils # 4.1 K/mm3 (1.8-7.7) 12/30/16 05:04 PT 13.9 Sec. (12.2-14.9) 12/30/16 05:04 INR 1.08 (0.87-1.13) 12/30/16 05:04 APTT 28.5 Sec. (24.2-36.6) 12/27/16 14:51 D-Dimer < 135.00 ng/mlDDU (0-234) 12/27/16 20:27 Sodium 140 mmol/L (137-145) 12/30/16 05:04 Potassium 3.9 mmol/L (3.6-5.0) 12/30/16 05:04 Chloride 98.8 mmol/L (98-107) 12/30/16 05:04 Carbon Dioxide 28 mmol/L (22-30) 12/30/16 05:04 Anion Gap 17 mmol/L 12/30/16 05:04 BUN 12 mg/dL (7-17) 12/30/16 05:04 Creatinine 0.6 mg/dL (0.7-1.2) L 12/30/16 05:04 Estimated GFR > 60 ml/min 12/30/16 05:04 BUN/Creatinine Ratio 20.00 % 12/30/16 05:04 Glucose 155 mg/dL (65-100) H 12/30/16 05:04 POC Glucose 201 (70-105) H 12/30/16 11:14 Calcium 8.3 mg/dL (8.4-10.2) L 12/30/16 05:04 Total Creatine Kinase 35 units/L (30-135) 12/28/16 07:28 CK-MB (CK-2) 1.7 ng/mL (0.0-4.0) 12/28/16 07:28 CK-MB (CK-2) Rel Index 4.8 (0-4) H 12/28/16 07:28 Troponin T < 0.010 ng/mL (0.00-0.029) 12/28/16 07:28 NT-Pro-B Natriuret Pep 4250 pg/mL (0-450) H 12/27/16 20:27
[2016-12-30] MEDS: APRESOLINE PO SCH (21:45)
[2016-12-31] MEDS: APRESOLINE PO SCH ×3 (05:36→21:56)
[2016-12-31] MEDS: MORPHINE IV PRN ×4 (05:37→21:56)
[2016-12-31] MEDS: NOVOLOG SUB-Q SCH ×5 (07:45→22:02)
[2016-12-31] MEDS: TOPROL XL PO SCH (09:17)
[2016-12-31] MEDS: ASPIRIN PO SCH (09:17)
[2016-12-31] MEDS: APRESOLINE IV PRN ×2 (09:18→15:23)
[2016-12-31] MEDS: LOVENOX SUB-Q SCH ×2 (09:18→21:56)
--- NOTE | 2016-12-31 10:10 | Progress Note ---
Assessment and Plan Chest Pain Recurrent admissions for chest pain [facility] this admission reports non obstructive disease of the mid LAD and proximal RCA, EF 35%. Medical therapy recommended. Chronic Atrial fibrillation, rate controlled non-compliant with Xarelto COPD ANTONETTE Obese Cardiomyopathy, non-ischemic TDS, EF severely reduced on echo 04/2016 No ischemia on stress thallium 07/2016 Diabetes Hypertension Anxiety Non compliance No further workup indicated. Continue medical therapy for nonischemic cardiomyopathy and nonobstructive coronary disease. Continue anticoagulation and rate control of persistent atrial fibrillation. Optimal BP control. Subjective Date of service: 12/31/16 Principal diagnosis: Chest Pain Interval history: Patient has no complaints. Objective Vital Signs Temp Pulse Pulse Pulse Resp BP BP 12/31/16 09:49 91 H 12/31/16 05:36 68 180/99 12/31/16 04:10 98.4 F 69 22 12/31/16 00:49 97.6 F 86 22 12/30/16 22:01 18 12/30/16 22:00 121 H 20 12/30/16 21:45 79 183/114 12/30/16 20:15 97.9 F 79 22 12/30/16 15:04 98.5 F 94 H 20 208/131 12/30/16 13:09 209/100 12/30/16 13:07 22 12/30/16 12:45 98.2 F 112 H 26 H 216/105 12/30/16 12:10 97.6 F 112 H 26 H 206/106 12/30/16 11:40 97.3 F L 97 H 24 189/127 12/30/16 10:55 98.5 F 97 H 20 197/130 12/30/16 10:40 98.5 F 97 H 22 196/138 12/30/16 10:38 102 H 224/125 12/30/16 10:20 97.0 F L 102 H 24 228/125 BP Pulse Ox 12/31/16 09:49 12/31/16 05:36 12/31/16 04:10 180/99 12/31/16 00:49 148/108 98 12/30/16 22:01 97 12/30/16 22:00 12/30/16 21:45 12/30/16 20:15 183/114 12/30/16 15:04 95 12/30/16 13:09 12/30/16 13:07 12/30/16 12:45 95 12/30/16 12:10 94 12/30/16 11:40 95 12/30/16 10:55 94 12/30/16 10:40 95 12/30/16 10:38 12/30/16 10:20 95 - Physical Examination General: No Apparent Distress HEENT: Positive: PERRL Neck: Positive: neck supple Neuro: Positive: Grossly Intact Abdomen: Positive: Soft Skin: Positive: Clear Extremities: Absent: edema - Imaging and Cardiology EKG: image reviewed
[2016-12-31] MEDS: NORVASC PO SCH (13:23)
[2016-12-31] MEDS: ATIVAN PO PRN ×2 (17:07→21:56)
--- NOTE | 2016-12-31 17:37 | Progress Note ---
Assessment and Plan - Patient Problems (1) Acute chest pain Current Visit: Yes Status: Acute Plan to address problem: Patient was worked up for ischemia and negative including cardiac cath. Patient is on morphine for pain control. (2) Acute on chronic systolic (congestive) heart failure Current Visit: Yes Status: Acute (3) Noncompliance with medication regimen Current Visit: Yes Status: Acute Plan to address problem: Patient is counseled about medication adherence. (4) Hypertension Current Visit: Yes Status: Chronic Qualifiers: Hypertension type: essential hypertension Qualified Code(s): I10 - Essential (primary) hypertension Plan to address problem: Continue BP meds (5) Anxiety Current Visit: No Status: Acute Plan to address problem: ativan History Interval history: Patient was seen and evaluated, complaining chest pain, and looks anxious. Hospitalist Physical - Physical exam Narrative exam: Not in cardiopulmonary distress. Complaining left sided chest pain. The patient appeared well nourished and normally developed. Vital signs as documented. Head exam is unremarkable. No scleral icterus . Neck is without jugular venous distension, thyromegaly, or carotid bruits. Lungs are clear to auscultation. Cardiac exam reveals regular rate and Rhythm. First and second heart sounds normal. No murmurs, rubs or gallops. Abdominal exam reveals normal bowel sounds, no masses, no organomegaly and no aortic enlargement. Extremities are nonedematous and both femoral and pedal pulses are normal. POLYSOMNOGRAPHY TECHNICIAN: Alert and oriented 3. No focal weakness. - Constitutional Vitals: Temp Pulse Resp BP Pulse Ox 97.8 F 92 H 18 186/114 96 12/31/16 16:59 12/31/16 16:59 12/31/16 16:59 12/31/16 16:59 12/31/16 16:59 General appearance: Present: no acute distress, obese Results - Labs CBC & Chem 7: 12/30/16 05:04 12/30/16 05:04 Labs: Laboratory Last Values WBC 7.2 K/mm3 (4.5-11.0) 12/30/16 05:04 RBC 4.73 M/mm3 (3.65-5.03) 12/30/16 05:04 Hgb 13.1 gm/dl (10.1-14.3) 12/30/16 05:04 Hct 40.5 % (30.3-42.9) 12/30/16 05:04 MCV 86 fl (79-97) 12/30/16 05:04 MCH 28 pg (28-32) 12/30/16 05:04 MCHC 32 % (30-34) 12/30/16 05:04 RDW 16.9 % (13.2-15.2) H 12/30/16 05:04 Plt Count 211 K/mm3 (140-440) 12/30/16 05:04 Lymph % (Auto) 28.4 % (13.4-35.0) 12/30/16 05:04 [place] % (Auto) 11.3 % (0.0-7.3) H 12/30/16 05:04 Eos % (Auto) 2.8 % (0.0-4.3) 12/30/16 05:04 Baso % (Auto) 0.4 % (0.0-1.8) 12/30/16 05:04 Lymph # 2.0 K/mm3 (1.2-5.4) 12/30/16 05:04 [place] # 0.8 K/mm3 (0.0-0.8) 12/30/16 05:04 Eos # 0.2 K/mm3 (0.0-0.4) 12/30/16 05:04 Baso # 0.0 K/mm3 (0.0-0.1) 12/30/16 05:04 Seg Neutrophils % 57.1 % (40.0-70.0) 12/30/16 05:04 Seg Neutrophils # 4.1 K/mm3 (1.8-7.7) 12/30/16 05:04 PT 13.9 Sec. (12.2-14.9) 12/30/16 05:04 INR 1.08 (0.87-1.13) 12/30/16 05:04 APTT 28.5 Sec. (24.2-36.6) 12/27/16 14:51 D-Dimer < 135.00 ng/mlDDU (0-234) 12/27/16 20:27 Sodium 140 mmol/L (137-145) 12/30/16 05:04 Potassium 3.9 mmol/L (3.6-5.0) 12/30/16 05:04 Chloride 98.8 mmol/L (98-107) 12/30/16 05:04 Carbon Dioxide 28 mmol/L (22-30) 12/30/16 05:04 Anion Gap 17 mmol/L 12/30/16 05:04 BUN 12 mg/dL (7-17) 12/30/16 05:04 Creatinine 0.6 mg/dL (0.7-1.2) L 12/30/16 05:04 Estimated GFR > 60 ml/min 12/30/16 05:04 BUN/Creatinine Ratio 20.00 % 12/30/16 05:04 Glucose 155 mg/dL (65-100) H 12/30/16 05:04 POC Glucose 124 (70-105) H 12/31/16 15:19 Calcium 8.3 mg/dL (8.4-10.2) L 12/30/16 05:04 Total Creatine Kinase 35 units/L (30-135) 12/28/16 07:28 CK-MB (CK-2) 1.7 ng/mL (0.0-4.0) 12/28/16 07:28 CK-MB (CK-2) Rel Index 4.8 (0-4) H 12/28/16 07:28 Troponin T < 0.010 ng/mL (0.00-0.029) 12/28/16 07:28 NT-Pro-B Natriuret Pep 4250 pg/mL (0-450) H 12/27/16 20:27
[2017-01-01] MEDS: MORPHINE IV PRN ×3 (02:29→10:05)
[2017-01-01] MEDS: APRESOLINE PO SCH (06:10)
[2017-01-01 06:34] LABS: Basophils % (Auto) 0.4 % (0.0-1.8); Eosinophils % (Auto) 2.3 % (0.0-4.3); Hematocrit 41.5 % (30.3-42.9); Hemoglobin 13.8 gm/dl (10.1-14.3); Mean Corpuscular HGB Conc 33 % (30-34); Mean Corpuscular Hemoglobin 28 pg (28-32); Mean Corpuscular Volume 84 fl (79-97); Platelet Count 217 K/mm3 (140-440); Red Blood Count 4.94 M/mm3 (3.65-5.03); Red Cell Distribution Width 17.3 % (13.2-15.2); White Blood Count 9.2 K/mm3 (4.5-11.0)
[2017-01-01 06:51] LABS: Anion Gap 19 mmol/L; Blood Urea Nitrogen 15 mg/dL (7-17); Calcium 8.5 mg/dL (8.4-10.2); Carbon Dioxide 26 mmol/L (22-30); Glucose 154 mg/dL (65-100); Potassium 3.9 mmol/L (3.6-5.0); Sodium 142 mmol/L (137-145)
[2017-01-01] MEDS: NOVOLOG SUB-Q SCH (07:30)
--- NOTE | 2017-01-01 09:49 | Progress Note ---
Assessment and Plan Chest Pain Recurrent admissions for chest pain [facility] this admission reports non obstructive disease of the mid LAD and proximal RCA, EF 35%. Medical therapy recommended. Chronic Atrial fibrillation, rate controlled with beta miles non-compliant with Xarelto. COPD ANTONETTE Obese Cardiomyopathy, non-ischemic TDS, EF severely reduced on echo 04/2016 No ischemia on stress thallium 07/2016 Diabetes Hypertension Anxiety Non compliance Plan: Continue medical therapy for nonischemic cardiomyopathy and nonobstructive coronary disease. We will start Eliquis for anticoagulation. Continue beta miles for rate control of persistent atrial fibrillation. Subjective Date of service: 01/01/17 Principal diagnosis: Chest Pain Interval history: Patient resting in bed comfortably. Objective Vital Signs Temp Pulse Pulse Pulse Resp BP BP 01/01/17 05:00 97.9 F 82 20 179/94 01/01/17 01:00 97.3 F L 97 H 19 148/77 12/31/16 22:00 18 12/31/16 21:39 82 18 12/31/16 20:00 98.2 F 69 20 140/65 12/31/16 16:59 97.8 F 92 H 18 186/114 12/31/16 13:07 98.2 F 109 H 18 185/137 12/31/16 09:49 91 H Pulse Ox 01/01/17 05:00 95 01/01/17 01:00 92 12/31/16 22:00 12/31/16 21:39 98 12/31/16 20:00 96 12/31/16 16:59 96 12/31/16 13:07 96 12/31/16 09:49 - Physical Examination General: No Apparent Distress Cardiac: Positive: irregularly irregular - Labs and Meds CBC 01/01/17 Range/Units 05:47 WBC 9.2 (4.5-11.0) K/mm3 RBC 4.94 (3.65-5.03) M/mm3 Hgb 13.8 (10.1-14.3) gm/dl Hct 41.5 (30.3-42.9) % Plt Count 217 (140-440) K/mm3 Lymph # 2.1 (1.2-5.4) K/mm3 [place] # 0.8 (0.0-0.8) K/mm3 Eos # 0.2 (0.0-0.4) K/mm3 Baso # 0.0 (0.0-0.1) K/mm3 Comprehensive Metabolic Panel 01/01/17 Range/Units 05:47 Sodium 142 (137-145) mmol/L Potassium 3.9 (3.6-5.0) mmol/L Chloride 101.0 (98-107) mmol/L Carbon Dioxide 26 (22-30) mmol/L BUN 15 (7-17) mg/dL Creatinine 0.6 L (0.7-1.2) mg/dL Glucose 154 H (65-100) mg/dL Calcium 8.5 (8.4-10.2) mg/dL - Imaging and Cardiology EKG: image reviewed
[2017-01-01] MEDS: NORVASC PO SCH (10:04)
[2017-01-01] MEDS: TOPROL XL PO SCH (10:05)
[2017-01-01 10:06] VITALS: BP 179/81
[2017-01-01] MEDS ORDERED: ELIQUIS PO SCH (11:00)
[2017-01-01] MEDS ORDERED: BABY ASPIRIN PO SCH (11:00)
--- NOTE | 2017-01-01 12:05 | Discharge Summary ---
Providers - Providers Date of Admission: 12/27/16 22:30 Date of discharge: 01/01/17 Attending physician: RAMESH PENA MD Hospitalization Reason for admission: CHEST PAIN Condition: Stable Disposition: DISCHARGED TO HOME OR SELFCARE Time spent for discharge: 31 MINUTES - Discharge Diagnoses (1) Acute chest pain Status: Acute (2) Acute on chronic systolic (congestive) heart failure Status: Acute (3) Noncompliance with medication regimen Status: Acute (4) Hypertension Status: Chronic Qualifiers: Hypertension type: essential hypertension Qualified Code(s): I10 - Essential (primary) hypertension (5) Anxiety Status: Acute Core Measure Documentation - Palliative Care Palliative Care/ Comfort Measures: Not Applicable - Core Measures Any of the following diagnoses?: none Exam - Physical Exam Narrative exam: Not in cardiopulmonary distress. Complaining left sided chest pain. The patient appeared well nourished and normally developed. Vital signs as documented. Head exam is unremarkable. No scleral icterus . Neck is without jugular venous distension, thyromegaly, or carotid bruits. Lungs are clear to auscultation. Cardiac exam reveals regular rate and Rhythm. First and second heart sounds normal. No murmurs, rubs or gallops. Abdominal exam reveals normal bowel sounds, no masses, no organomegaly and no aortic enlargement. Extremities are nonedematous and both femoral and pedal pulses are normal. FLIGHT OPERATIONS MANAGER: Alert and oriented 3. No focal weakness. - Constitutional Vitals: Temp Pulse Resp BP Pulse Ox 97.9 F 88 18 179/81 95 01/01/17 05:00 01/01/17 10:05 01/01/17 10:00 01/01/17 10:05 01/01/17 05:00 Plan Activity: no restrictions Weight Bearing Status: Full Weight Bearing Diet: low cholesterol, low salt, diabetic Follow up with: DR YOLANDE [Other] - 7 Days Prescriptions: Digoxin [Lanoxin] 0.25 mg PO DAILY@1700 #30 tablet
== END 2017-01-01 13:06 | disposition home or self-care (01) | DRG 286 ==
LOC: ED 12:18 → 4A 22:30
PROVIDERS: ADMIT Internal Medicine; ATTEND Internal Medicine
PROC: 5A09457 Assistance with Respiratory Ventilation, 24-96 Consecutive Hours, Continuous Positive Airway Pressure (ICD-10-PCS; 2016-12-27)
PROC: 4A023N7 Measurement of Cardiac Sampling and Pressure, Left Heart, Percutaneous Approach (ICD-10-PCS; principal; 2016-12-30)
PROC: B2111ZZ Fluoroscopy of Multiple Coronary Arteries using Low Osmolar Contrast (ICD-10-PCS; 2016-12-30)
DX: I25.110 Atherosclerotic heart disease of native coronary artery with unstable angina pectoris (principal); I50.23 Acute on chronic systolic (congestive) heart failure; I11.0 Hypertensive heart disease with heart failure; I48.2 Chronic atrial fibrillation; J44.9 Chronic obstructive pulmonary disease, unspecified; E11.9 Type 2 diabetes mellitus without complications; E66.9 Obesity, unspecified; M19.90 Unspecified osteoarthritis, unspecified site; G47.33 Obstructive sleep apnea (adult) (pediatric); I42.0 Dilated cardiomyopathy; F41.9 Anxiety disorder, unspecified; Z86.73 Personal history of transient ischemic attack (TIA), and cerebral infarction without residual deficits; Z91.14 Patient's other noncompliance with medication regimen; Z83.3 Family history of diabetes mellitus; Z82.49 Family history of ischemic heart disease and other diseases of the circulatory system; Z68.42 Body mass index [BMI] 45.0-49.9, adult
CPT/HCPCS: 36415; 71010; 80048; 82550; 82553; 82962; 83880; 84484; 85025; 85379; 85610; 85730; 93005; 93010; 93458; 94660; 96372; 96374; A9270-GY; C1894; J0360; J1644; J1650; J1815; J1940; J2250; J2270; J2405; J3010; J7040; Q9967

== ENCOUNTER 2017-01-29 13:24 | Emergency (ER) | payer MEDICAID ==
[2017-01-29 14:23] VITALS: BP 144/100
[2017-01-29] MEDS ORDERED: MOTRIN PO ONE (16:20)
--- NOTE | 2017-01-29 16:25 | Emergency Department Report ---
HPI - General Chief Complaint: Extremity Problem,Nontraumatic Time Seen by Provider: 01/29/17 16:19 - HPI HPI: 41-year-old obese female with a past medical history of COPD hypertension diabetes anxiety and A. fib comes in for left knee pain that started last night. Patient reports the pain has been on and off for a year. Stay that she was kneeling down last night and now the pain is much worse today. Patient reports that she did not take any of her medications for her diabetes hypertension or A. fib. She did not take any pain medication because she just didn't have any. Patient cannot recall if the knee is swollen red or tight feeling. ED Past Medical Hx - Past Medical History Hx Hypertension: Yes Hx CVA: Yes Hx Heart Attack/AMI: Yes Hx Congestive Heart Failure: Yes Hx Diabetes: Yes Hx Deep Vein Thrombosis: No Hx Pulmonary Embolism: No Hx Liver Disease: No Hx Sickle Cell Disease: No Hx Arthritis: Yes Hx Seizures: No Hx Asthma: No Hx COPD: Yes Hx Tuberculosis: No Hx Dementia: No Hx HIV: No Additional medical history: "Enlarged heart", palpitations, sleep apnea, A. fib - Surgical History Hx Coronary Stent: No Hx Open Heart Surgery: No Hx Pacemaker: No Hx Internal Defibrillator: No Hx Cholecystectomy: No Hx Appendectomy: No Hx Breast Surgery: No Additional Surgical History: cyst from buttock. - Social History Smoking Status: Current Some Day Smoker Substance Use Type: None - Medications Home Medications: Home Medications Medication Instructions Recorded Confirmed Last Taken Type Aspirin EC [Aspirin Enteric Coated 81 mg PO QDAY #30 tablet. 08/24/1612/27/16 Rx TAB] AtorvaSTATin [Lipitor] 40 mg PO QHS #30 tablet 11/06/16 12/27/16 12/26/16 Rx Furosemide [Lasix TAB] 40 mg PO 0600,1800 #60 tablet 11/06/16 12/27/16 12/27/16 Rx Metoprolol [Lopressor TAB] 100 mg PO Q8H #90 tablet 11/06/16 12/27/16 12/27/16 Rx Rivaroxaban [Xarelto] 20 mg PO QDDIAB #30 tablet 11/06/16 12/27/16 12/27/16 Rx glipiZIDE [Glucotrol] 5 mg PO QDAY #30 tablet 12/12/27/16 12/27/16 Rx metFORMIN [Glucophage] 1,000 mg PO BID #60 tablet 11/06/16 12/27/16 12/27/16 Rx Potassium Chloride [Klor-Con 10] 10 meq PO DAILY 12/27/16 12/27/16 12/27/16 History Digoxin [Lanoxin] 0.25 mg PO DAILY@1700 #30 tablet 01/01/17 Unknown Rx Ibuprofen [Motrin 800 MG tab] 800 mg PO ONCE #30 tablet 01/29/17 Unknown Rx ED Review of Systems ROS: Stated complaint: LT KNEE PAIN Other details as noted in HPI Constitutional: denies: chills, fever Eyes: denies: eye pain, eye discharge, vision change ENT: denies: ear pain, throat pain Respiratory: denies: cough, shortness of breath, wheezing Musculoskeletal: arthralgia Physical Exam - Physical Exam Vital Signs: Vital Signs 01/29/17 14:18 Temperature 98.0 F Pulse Rate 94 H Respiratory 20 Rate Blood Pressure 144/100 O2 Sat by Pulse 97 Oximetry Physical Exam: GENERAL: Alert and oriented x3, no apparent distress, Normal Gait, atraumatic. HEAD: Head is normocephalic and a-traumatic. EYES: Extra ocular muscles are intact. Pupils are equal, round, and reactive to light and accommodation. LUNGS: Symetrical with respiration, No wheezing, no rales or crackles, CTAB. HEART: S1, S2 present, regular rate and rhythm without murmur, no rubs, no gallops. EXTREMITIES/MUSCULOSKELETAL: No cyanosis, clubbing, rash, lesions or edema. Full ROM bilaterally. UE/LE Pulses 2+ bilaterally. LE and UE 5+ strength bilaterally patient reports tender to palpate in pain with movement, left knee is not warm is not erythematous and nonerythematous NEUROLOGIC: No focal Deficit, Cranial nerves II through XII are grossly intact. No loss of sensation, No facial droop, Negative rhomberg. PSYCHIATRIC: Mood is congruent with affect, SKIN: Warm and dry, No lesions, No ulceration or induration present ED Course Vital Signs 01/29/17 14:18 Temperature 98.0 F Pulse Rate 94 H Respiratory 20 Rate Blood Pressure 144/100 O2 Sat by Pulse 97 Oximetry ED Medical Decision Making - Medical Decision Making She has been evaluated by this provider fast track. We will give patient ibuprofen 800 mg 1 tablet by mouth now. Would then reassess patient at that time. Critical care attestation.: If time is entered above; I have spent that time in minutes in the direct care of this critically ill patient, excluding procedure time. ED Disposition Clinical Impression: Morbid obesity due to excess calories, Noncompliance with medication regimen Left knee pain Qualifiers: Chronicity: chronic Qualified Code(s): M25.562 - Pain in left knee Disposition: DISCHARGED TO HOME OR SELFCARE Is pt being admited?: No Does the pt Need Aspirin: No Condition: Stable Additional Instructions: Please follow up with her primary care provider. Take pain medication as prescribed Prescriptions: Ibuprofen [Motrin 800 MG tab] 800 mg PO ONCE #30 tablet Referrals: ALISON LANIER MD [Primary Care Provider] - 3-5 Days
== END 2017-01-29 18:00 | disposition home or self-care (01) ==
LOC: ED 13:24
DX: M25.562 Pain in left knee (principal); E66.01 Morbid (severe) obesity due to excess calories; Z91.14 Patient's other noncompliance with medication regimen; I10 Essential (primary) hypertension; I25.2 Old myocardial infarction; E11.9 Type 2 diabetes mellitus without complications; J44.9 Chronic obstructive pulmonary disease, unspecified; F17.200 Nicotine dependence, unspecified, uncomplicated
CPT/HCPCS: 99282

== ENCOUNTER 2017-02-16 00:53 | Emergency (ER) | payer MEDICAID ==
[2017-02-16] MEDS ORDERED: DUONEB 0.5 MG-3 MG/3 ML SOLN IH ONE (02:19)
[2017-02-16 02:52] LABS: Basophils % (Auto) 0.2 % (0.0-1.8); Eosinophils % (Auto) 0.9 % (0.0-4.3); Hematocrit 42.3 % (30.3-42.9); Hemoglobin 13.7 gm/dl (10.1-14.3); Mean Corpuscular HGB Conc 32 % (30-34); Mean Corpuscular Hemoglobin 27 pg (28-32); Mean Corpuscular Volume 85 fl (79-97); Platelet Count 226 K/mm3 (140-440); Red Blood Count 4.99 M/mm3 (3.65-5.03); Red Cell Distribution Width 16.1 % (13.2-15.2); White Blood Count 11.2 K/mm3 (4.5-11.0)
[2017-02-16 03:07] LABS: Anion Gap 19 mmol/L; BUN/Creatinine Ratio 16.66; Blood Urea Nitrogen 10 mg/dL (7-17); Calcium 8.6 mg/dL (8.4-10.2); Carbon Dioxide 24 mmol/L (22-30); Chloride 98.8 mmol/L (98-107); Glucose 223 mg/dL (65-100); Potassium 3.3 mmol/L (3.6-5.0); Sodium 138 mmol/L (137-145)
[2017-02-16] MEDS ORDERED: ZOFRAN IM ONE (09:40)
[2017-02-16] MEDS ORDERED: DILAUDID IM ONE (09:40)
[2017-02-16] MEDS ORDERED: ATIVAN PO ONE (09:40)
[2017-02-16] MEDS ORDERED: ATROVENT IH ONE (09:41)
[2017-02-16] MEDS ORDERED: XOPENEX IH ONE (09:41)
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
[2017-02-16] MEDS ORDERED: K-DUR PO ONE (11:18)
[2017-02-16 12:07] VITALS: BP 132/72
== END 2017-02-16 11:38 | disposition home or self-care (01) ==
LOC: ED 00:53
DX: S20.229A Contusion of unspecified back wall of thorax, initial encounter (principal); J44.9 Chronic obstructive pulmonary disease, unspecified; I48.2 Chronic atrial fibrillation; E87.6 Hypokalemia; I10 Essential (primary) hypertension; I25.2 Old myocardial infarction; E11.9 Type 2 diabetes mellitus without complications; X58.XXXA Exposure to other specified factors, initial encounter; Y93.9 Activity, unspecified; Y92.9 Unspecified place or not applicable; Y99.9 Unspecified external cause status
CPT/HCPCS: 36415; 80048; 84484; 85025; 93005; 93010; 94640; 96372; 99285; J1170; J2405

== ENCOUNTER 2017-03-19 15:19 | Emergency (ER) | payer MEDICAID ==
[2017-03-19 15:55] VITALS: BP 156/101
[2017-03-19 17:22] LABS: Bacteria,Urine 1+ /HPF (Negative); Bilirubin,Urine NEG (Negative); Blood,Urine NEG (Negative); Ketones,Urine NEG (Negative); Leukocyte Esterase,Urine LG (Negative); Nitrite,Urine NEG (Negative); Protein,Urine <15 mg/dL mg/dL (Negative); Urobilinogen,Urine < 2.0 mg/dL (<2.0)
== END 2017-03-19 20:35 | disposition home or self-care (01) ==
LOC: ED 15:19
DX: T76.21XA Adult sexual abuse, suspected, initial encounter (principal); N39.0 Urinary tract infection, site not specified; I10 Essential (primary) hypertension; I25.2 Old myocardial infarction; I50.9 Heart failure, unspecified; E11.9 Type 2 diabetes mellitus without complications; G43.909 Migraine, unspecified, not intractable, without status migrainosus; F32.9 Major depressive disorder, single episode, unspecified; J44.9 Chronic obstructive pulmonary disease, unspecified; J45.909 Unspecified asthma, uncomplicated; F17.200 Nicotine dependence, unspecified, uncomplicated; Z86.73 Personal history of transient ischemic attack (TIA), and cerebral infarction without residual deficits
CPT/HCPCS: 81001; 81025; 99282